=== PATIENT | male | born 1985 | race Caucasian/White ===

== ENCOUNTER 2016-08-07 13:20 | Day surgery (SDC) | payer OTHER ==
[~2016-08-07] VITALS: Ht 165.1 cm; Wt 86.3 kg
[~2016-08-07 13:20] MED LIST: ACET500C5 PO; CIPR500T4 PO; IBUP800T25 PO; METR500T PO
[2016-08-07 14:23] VITALS: Ht 165.1 cm; Wt 86.3 kg
[2016-08-07 14:29] VITALS: BP 105/59; PULSE 60; RESP 12
[2016-08-07] MEDS ORDERED: PROPOFOL 20 ML ONE (15:30)
[2016-08-07 16:26] VITALS: BP 109/61; PULSE 74; RESP 17
--- NOTE | 2016-08-07 18:23 | GILP ---
DATE OF PROCEDURE: 08/07/2016 DATE: 08/07/2016. PROCEDURE PERFORMED: Colonoscopy. BRIEF HISTORY AND INDICATIONS: The patient is here for evaluation post-episode of diverticulitis. PREMEDICATION: Monitored anesthesia care by anesthesiologist. SURGEON: Sandra Finn MD. INSTRUMENT USED: Olympus colonoscope. PREPARATION: Adequate. TECHNIQUE: After informed consent, with the patient/relatives understanding the procedure, its indic ations potential risks and complications, including but not limited to: allergic reaction, bleeding, perforation, infection, missed lesions and after all pertinent questions were answered to the patie nt's satisfaction, the patient/relatives signed the witnessed informed consent. Following this, premedication was administered slowly IV push by under careful cardiovascular and re spiratory monitoring with pulse oximetry, automatic blood pressure and monitor worker. Once the sedativ e effect was achieved, the patient was placed in the left lateral decubitus position, digital rectal examination was performed. The colonoscope was then introduced and advanced under visual control th roughout all segments of the colon including: the rectum, sigmoid, descending colon, splenic flexure , transverse colon, hepatic flexure, ascending colon and finally reaching the cecum which was clearl y identified by transillumination, finger indentation and the ileocecal valve. Careful examination o f the mucosa of the lower gastrointestinal tract both on insertion as well as withdrawal of the inst rument disclosed the following findings: Rectal Examination: No evidence of perirectal disease, no masses. Colonic Mucosa: The colonic mucosa is remarkable for diverticulosis in the sigmoid colon which is mo derate in degree, no evidence of complications present. The remainder of colonic mucosa unremarkabl e. The ileocecal valve was clearly identified and appears unremarkable. The instrument was withdra wn reexamining the mucosa in detail. No additional abnormalities are noted with exception of modera te sized internal hemorrhoids. . The instrument was then withdrawn, the patient tolerated the procedure well and was transferred out of the [facility]oscopy Suite awake and in good condition to continue recovery under observation. IMPRESSION: 1. Moderate sigmoid diverticulosis with no evidence of complications. 2. Moderate size internal hemorrhoids. PLAN: The patient will be advised on a high fiber diet, annual Hemoccult stool testing and colonosc opy at age 48. Dictated By: SANDRA FINN MS/NADIA Conf#: [id number] DID#: [id number]
== END 2016-08-10 08:26 | disposition home or self-care (01) ==
LOC: GIL 13:20
PROVIDERS: ATTEND Internal Medicine Gastroenterology
DX: Z12.11 Encounter for screening for malignant neoplasm of colon (principal); K57.30 Diverticulosis of large intestine without perforation or abscess without bleeding; K64.8 Other hemorrhoids
CPT/HCPCS: 45378; Z7610

== ENCOUNTER 2017-07-15 10:34 | Emergency (ER) | END 2017-07-15 15:32 | disposition home or self-care (01) ==